=== PATIENT | male | born 1950 | race Caucasian/White ===

== ENCOUNTER 2022-05-09 22:38 | Emergency (ER) | payer BC ==
[~2022-05-09] VITALS: Ht 172.7 cm; Wt 87.0 kg
[2022-05-10] MEDS ORDERED: OMEPRAZOLE20 MG PO (01:18)
[2022-05-10] MEDS ORDERED: NORVASC10 MG PO (01:18)
[2022-05-10] MEDS ORDERED: HYDROCHLOROTH12.5 M1 PO (01:19)
[2022-05-10] MEDS ORDERED: TADALAFIL5 MG PO (01:20)
== END 2022-05-10 ==
LOC: ED 22:38
DX: K80.20 Calculus of gallbladder without cholecystitis without obstruction (principal); E86.0 Dehydration; I10 Essential (primary) hypertension; K21.9 Gastro-esophageal reflux disease without esophagitis; Z91.041 Radiographic dye allergy status; Z79.899 Other long term (current) drug therapy
CPT/HCPCS: 36415; 76705; 80053; 81003; 83690; 85025; 99284-25; J7030